=== PATIENT | female | born 1945 | race Caucasian/White ===

== ENCOUNTER 2022-02-15 15:18 | Inpatient (IN) | payer MEDICARE, MEDICAID, SELFPAY ==
[2022-02-15] VITALS (10 sets, daily range): BP systolic 142–186; BP diastolic 71–91; PULSE 100–106; RESP 16–18; TEMP 36.6; O2SAT 96–100; BMI 33.3
[2022-02-15 16:29] LABS: Add Manual Diff / Slide Review NO; Basophils Absolute Auto 100 /uL (0-100); Basophils Percent Auto 0.9 % (0-2); Eosinophils Absolute Auto 200 /uL (0-450); Eosinophils Percent Auto 2.4 % (2-4); Hematocrit 35.3 % (36-46); Hemoglobin 12.2 g/dL (12.0-16.0); Lymphocytes Absolute Auto 2200 /uL (1100-4500); Lymphocytes Percent Auto 21.9 % (25-40); Mean Corpuscular HGB Conc 34.4 % (30-36); Mean Corpuscular Hemoglobin 30.9 PG (26-34); Mean Corpuscular Volume 89.6 fL (80-100); Monocytes Absolute Auto 800 /uL (0-900); Monocytes Percent Auto 7.5 % (3-14); Neutrophils Absolute Auto 6800 /uL (1500-7000); Neutrophils Percent Auto 67.3 % (50-75); Platelet Count 335 X10^3/uL (150-400); Red Blood Cell Count 3.94 X10^6/uL (4.0-5.2); Red Cell Distribution Width 13.6 % (11.6-14.8); White Blood Cell Count 10.1 X10^3/uL (4.5-11.0)
[2022-02-15 16:40] LABS: Alanine Aminotransferase 19 IU/L (<35); Albumin 4.4 g/dL (3.5-5.0); Alkaline Phosphatase 90 U/L (38-126); Aspartate Aminotransferase 26 IU/L (14-36); BUN Creatinine Ratio 22.5 (6-22); Bilirubin Total 0.7 mg/dL (0.2-1.3); Blood Urea Nitrogen 23 mg/dL (7-17); Calcium 9.1 mg/dL (8.4-10.2); Carbon Dioxide 26 mmol/L (22-32); Chloride 98 mmol/L (98-107); Estimated Glomerular Filt Rate 57 mL/min (>60); Globulin 4.6 g/dL (1.7-4.1); Glucose 115 mg/dL (80-110); HEMOLYSIS < 15 (0-50); Potassium 4.3 mmol/L (3.4-5.1); Sodium 134 mmol/L (137-145)
--- NOTE | 2022-02-15 17:26 | PC.NURSE ---
unsure if covid vaccination or use of walker aggravated some increased fatigue and pain with movement and weakness of joints. but yesterday about 1400 had unable to counter help spoon well to eat. i had to use my left hand and i never use that counter help now equal, no drift, fast negative. chronic pain is worsening over last 3-4 weeks. new heavier/taller walker in last monthish. covid booster done 02/02/22. generalized complaints that have been worse over last month with pain medications for it. Right side now left side sharp joint pains bothersome, aspercreme helps some. sometimes my dictionary shuts down pt able to find words and communicate needs when given time.
--- NOTE | 2022-02-15 17:31 | PC.NURSE ---
pt reports 2 weeks of numbness to fingertips more left than right and fingertips will get white.
--- NOTE | 2022-02-15 18:39 | DI.CT.S_ITS ---
PROCEDURE: CT HEAD/BRAIN WO CON INDICATIONS: right hand weakness TECHNIQUE: Noncontrast 5 mm thick angled axial sections acquired from the foramen magnum to the vertex, with coronal and sagittal reformats. For radiation dose reduction, the following was used: automated exposure control, adjustment of mA and/or kV according to patient size. COMPARISON: None. FINDINGS: Image quality: Excellent. CSF spaces: Basal cisterns are patent. No extra-axial fluid collections. Ventricles are normal in size and shape. Brain: No midline shift. No intracranial masses or hemorrhage. Ledesma-white matter interface is normal. Mild atrophy and multifocal white matter chronic ischemic change. Skull and face: Calvarium and visualized facial bones are intact, without suspicious lesions. Incidental hyperostosis frontalis interna noted. Bilateral intraocular lens replacements noted. Sinuses: Visualized sinuses and mastoids are clear. IMPRESSION: Atrophy and chronic ischemic change without intracranial hemorrhage or mass effect Approved by: Adrian Antonio M.D. on 02/15/2022 at 18:10
--- NOTE | 2022-02-15 18:39 | ED.GENADULT ---
HPI - General Adult General Chief complaint: Weakness Stated complaint: states hands are not working, sent by MD Time Seen by Provider: 02/15/22 16:48 Source: patient Mode of arrival: Wheelchair History of Present Illness HPI narrative: Patient is a 76-year-old female. Patient does live by herself and does have quite a bit health comes in to with her activities of daily living. Has a history of high blood pressure. Zvi-[id number] diabetes. Is here for evaluation stating that yesterday she noticed that she was unable to feed herself with her right hand. She is right-hand dominant. She had used her left hand to feed herself which is not normal for her. Patient's daughter is at bedside and there was also some question about her ability to swallow but that seems to have improved/resolved. Patient states that since the onset of her symptoms yesterday she does feel like the coordination issues she was having with her right hand have improved but are not completely back to normal. She denied any other specific neurologic symptoms. She has been on an aspirin in the past but nothing currently. Patient does have balance issues but this is not new. Is on meclizine for this. Patient also has chronic pain issues but is fairly well controlled on her home pain management regimen. Related Data Home Medications Medication Instructions Recorded Confirmed acetaminophen 300 mg-codeine 30 mg See Rx Instructions .ROUTE .COMPLEX 02/15/22 02/15/22 tablet cyclobenzaprine 7.5 mg tablet 7.5 mg PO QID 02/15/22 02/15/22 lisinopril 20 See Rx Instructions .ROUTE .COMPLEX 02/15/22 02/15/22 mg-hydrochlorothiazide 12.5 mg tablet meclizine 25 mg tablet 25 mg PO PRN PRN 02/15/22 02/15/22 metformin 500 mg tablet 500 mg PO BID 02/15/22 02/15/22 nabumetone 500 mg tablet 500 mg PO QID 02/15/22 02/15/22 pramipexole 0.5 mg tablet 0.5 mg PO QID 02/15/22 02/15/22 Allergies Allergy/AdvReac Type Severity Reaction Status Date / Time erythromycin base AdvReac Verified 02/15/22 15:42 Penicillins AdvReac Verified 02/15/22 15:42 Review of Systems Review of Systems ROS Unobtainable: All systems reviewed & are unremarkable except as noted in HPI and below Constitutional Constitutional: Reports fatigue, Denies fever(s), Denies frequent falls and Denies headache(s) Eyes Eyes: Denies change in vision ENT Ears, Nose, Mouth, and Throat: Denies headache(s) and Denies sore throat Cardiovascular Cardiovascular: Denies chest pain and Denies rapid heart rate Respiratory Respiratory: Denies cough Gastrointestinal Gastrointestinal: Denies abdominal pain and Denies vomiting Genitourinary Genitourinary: Denies dysuria Musculoskeletal Musculoskeletal: Reports as per HPI Integumentary/Breasts Skin/Breast: Denies rash Neurologic Neurologic: Reports as per HPI, Denies frequent falls and Denies headache(s) Psychiatric Psychiatric: Reports system reviewed and no additional complaints, except as documented Endocrine Endocrine: Reports fatigue Hematologic/Lymphatic On Anticoagulants: No Allergic/Immunologic Allergic/Immunologic: Reports system reviewed and no additional complaints, except as documented Patient History Medical History Cervical osteoarthritis Chronic pain syndrome Diabetes type 2, controlled Essential hypertension Hyperlipidemia Family History (Updated 02/16/22 @ 00:47 by PAZ Duarte) Father Lymphoma Mother Heart disease Brother Alcohol abuse Sister Breast cancer Social History household members: none Smoking Status: Never smoker alcohol intake: never Smoking Status: Never smoker Exam Initial Vital Signs Initial Vital Signs: Vital Signs Temperature 97.9 F 02/15/22 15:43 Pulse Rate 104 H 02/15/22 15:43 Respiratory Rate 18 02/15/22 15:43 Blood Pressure 142/71 H 02/15/22 15:43 Pulse Oximetry 100 02/15/22 15:43 Const General: cooperative, comfortable and well developed Limitations: mental status not altered [facility] Head: normal to inspection and normocephalic Eyes General: appearance normal, both eyes and all related structures Chest Chest: normal inspection of the chest Resp Effort & Inspection: normal respiratory effort Auscultation: clear to auscultation bilaterally Cardio Rate: regular rate Rhythm: regular rhythm Heart Sounds: murmur GI Inspection: non-distended Palpation: soft and No tender Skin General: no rashes or lesions noted Neuro General: patient alert, patient awake, patient oriented x3 and moves all extremities Cranial Nerves: CN's II-XI intact bilaterally Cognition: normal cognition Speech: speech normal Motor: muscle tone normal throughout Sensory Exam: no sensory deficits noted Coordination: [id number] test normal Extrem General: normal to inspection and capillary refill normal Psych Appearance: grossly normal and well kempt Scores GCS Az[place] coma scale eye opening: Spontaneous Yony coma scale verbal response: Orientated Aztec coma scale motor response: Obey commands Yony coma scale total score: 15 NIH Stroke Scale Level of Conciousness: Alert, keenly responsive Ask month/age: Answers both questions correctly. Open/close eyes, close hand: Performs both tasks correctly Best gaze horizontal: Normal Visual singleton: No visual loss Facial palsy: Normal symetrical movement Left arm drift: No drift for full 10 sec Right arm drift: No drift for full 10 sec Left leg drift: No drift for full 5 sec Right leg drift: No drift for full 5 sec Limb ataxia: Absent Sensory on face/arms/legs: Normal, no sensory loss Best language: No aphasia, normal Dysarthria: Normal Extinction or inattention: No abnormality Total NIH Stroke scale score: 0 Course Orders Ordered: ED Orders 02/15/22 18:39 CT head/brain wo con Stat EKG-12 Lead Stat Acetaminophen (Acetaminophen 325 Mg Tablet) 650 mg PO Q6HR PRN PRN Reason: Fever/Mild Pain (1-3) Acetaminophen/Codeine Phosphate (Codeine/Acetaminophen 30/300 Tablet) 2 tab PO Q6HR [facility] Last Admin: 02/16/22 00:28 Dose: 2 tab Documented by: CHUCK Aspirin (Aspirin Ec 81 Mg Tablet) 81 mg PO DAILY [facility] Atorvastatin Calcium (Atorvastatin 20 Mg Tablet) 80 mg PO BEDTIME [facility] Last Admin: 02/15/22 23:00 Dose: Not Given Documented by: CHUCK Clopidogrel Bisulfate (Clopidogrel 75 Mg Tablet) 75 mg PO DAILY [facility] Cyclobenzaprine HCl (Cyclobenzaprine 10 Mg Tablet) 7.5 mg PO Q6HR [facility] Last Admin: 02/16/22 00:27 Dose: 7.5 mg Documented by: CHUCK Enoxaparin Sodium (Enoxaparin 40 Mg/0.4 Ml Syringe) 40 mg SUBCUT DAILY [facility] Lisinopril (Lisinopril 20 Mg Tablet) 20 mg PO DAILY [facility] Meclizine HCl (Meclizine Hcl 12.5 Mg Tablet) 25 mg PO PRN PRN PRN Reason: Dizziness Naloxone HCl (Naloxone 0.4 Mg/Ml Vial) 0.2 mg IV Q2MIN PRN PRN Reason: Opiate Reversal Pramipexole Dihydrochloride (Pramipexole 0.25 Mg Tablet) 0.5 mg PO Q6HR [facility] Last Admin: 02/16/22 00:27 Dose: 0.5 mg Documented by: CHUCK Discontinued Medications Acetaminophen/Codeine Phosphate (Codeine/Acetaminophen 30/300 Tablet) 2 tab PO QID [facility] Last Admin: 02/15/22 23:06 Dose: Not Given Documented by: CHUCK Aspirin (Aspirin 81 Mg Chew Tab) 324 mg PO NOW ONE Stop: 02/15/22 20:31 Last Admin: 02/15/22 20:32 Dose: 324 mg Documented by: JOSÉ Cyclobenzaprine HCl (Cyclobenzaprine 10 Mg Tablet) 7.5 mg PO QID [facility] Enoxaparin Sodium (Enoxaparin 40 Mg/0.4 Ml Syringe) 40 mg SUBCUT DAILY [facility] Pramipexole Dihydrochloride (Pramipexole 0.25 Mg Tablet) 0.5 mg PO QID [facility] Last Admin: 02/15/22 23:06 Dose: Not Given Documented by: CHUCK Vital Signs Vital signs: Vital Signs - 8 hr 02/15/22 15:43 02/15/22 16:26 02/15/22 16:28 Temperature 97.9 F 97.8 F Pulse Rate 104 H 102 H 102 H Respiratory Rate 18 Blood Pressure 142/71 H 174/91 H Pulse Oximetry 100 97 100 02/15/22 16:30 02/15/22 17:00 02/15/22 17:30 Temperature Pulse Rate 101 H 104 H 102 H Respiratory Rate 18 18 Blood Pressure 164/82 H 186/88 H 175/84 H Pulse Oximetry 96 99 98 02/15/22 18:00 Temperature Pulse Rate 100 H Respiratory Rate Blood Pressure Pulse Oximetry 97 Medical Decision Making Lab Data Lab results reviewed: Yes I reviewed the patient's lab results. Result diagrams: 02/15/22 16:15 02/15/22 16:15 Labs: Lab Results 02/15/22 02/15/22 02/15/22 Range/Units 16:15 16:15 16:15 WBC 10.1 (4.5-11.0) X10^3/uL RBC 3.94 L (4.0-5.2) X10^6/uL Hgb 12.2 (12.0-16.0) g/dL Hct 35.3 L (36-46) % MCV 89.6 (80-100) fL MCH 30.9 (26-34) PG MCHC 34.4 (30-36) % RDW 13.6 (11.6-14.8) % Plt Count 335 (150-400) X10^3/uL Neut % (Auto) 67.3 (50-75) % Lymph % (Auto) 21.9 L (25-40) % [place] % (Auto) 7.5 (3-14) % Eos % (Auto) 2.4 (2-4) % Baso % (Auto) 0.9 (0-2) % Neut # (Auto) 6800 (8316-8567) /uL Lymph # (Auto) 2200 (1328-0571) /uL [place] # (Auto) 800 (0-900) /uL Eos # (Auto) 200 (0-450) /uL Baso # (Auto) 100 (0-100) /uL Sodium 134 L (137-145) mmol/L Potassium 4.3 (3.4-5.1) mmol/L Chloride 98 (98-107) mmol/L Carbon Dioxide 26 (22-32) mmol/L BUN 23 H (7-17) mg/dL Creatinine 1.02 (0.52-1.04) mg/dL Estimated GFR 57 L (>60) mL/min BUN/Creatinine Ratio 22.5 H (6-22) Glucose 115 H (80-110) mg/dL Hemoglobin A1c (4.0-6.0) % Calcium 9.1 (8.4-10.2) mg/dL Magnesium 1.8 (1.6-2.3) mg/dL Total Bilirubin 0.7 (0.2-1.3) mg/dL AST 26 (14-36) IU/L ALT 19 (<35) IU/L Alkaline Phosphatase 90 (38-126) U/L Total Protein 9.0 H (6.3-8.2) g/dL Albumin 4.4 (3.5-5.0) g/dL Globulin 4.6 H (1.7-4.1) g/dL Albumin/Globulin Ratio 1.0 (1.0-2.8) Urine RBC (0-5/HPF) Urine WBC (0-5/HPF) Ur Squamous Epith Cells (0-5/HPF) Urine Bacteria (None) Ur Culture Indicated? 02/15/22 02/15/22 Range/Units 16:15 17:25 WBC (4.5-11.0) X10^3/uL RBC (4.0-5.2) X10^6/uL Hgb (12.0-16.0) g/dL Hct (36-46) % MCV (80-100) fL MCH (26-34) PG MCHC (30-36) % RDW (11.6-14.8) % Plt Count (150-400) X10^3/uL Neut % (Auto) (50-75) % Lymph % (Auto) (25-40) % [place] % (Auto) (3-14) % Eos % (Auto) (2-4) % Baso % (Auto) (0-2) % Neut # (Auto) (7881-4819) /uL Lymph # (Auto) (7364-8413) /uL [place] # (Auto) (0-900) /uL Eos # (Auto) (0-450) /uL Baso # (Auto) (0-100) /uL Sodium (137-145) mmol/L Potassium (3.4-5.1) mmol/L Chloride (98-107) mmol/L Carbon Dioxide (22-32) mmol/L BUN (7-17) mg/dL Creatinine (0.52-1.04) mg/dL Estimated GFR (>60) mL/min BUN/Creatinine Ratio (6-22) Glucose (80-110) mg/dL Hemoglobin A1c 5.8 (4.0-6.0) % Calcium (8.4-10.2) mg/dL Magnesium (1.6-2.3) mg/dL Total Bilirubin (0.2-1.3) mg/dL AST (14-36) IU/L ALT (<35) IU/L Alkaline Phosphatase (38-126) U/L Total Protein (6.3-8.2) g/dL Albumin (3.5-5.0) g/dL Globulin (1.7-4.1) g/dL Albumin/Globulin Ratio (1.0-2.8) Urine RBC None seen (0-5/HPF) Urine WBC 1-5/hpf (0-5/HPF) Ur Squamous Epith Cells 1-5 /hpf (0-5/HPF) Urine Bacteria None seen (None) Ur Culture Indicated? Specimen cultured Urine Dip Bedside Urine Glucose Negative Bedside Urine Bilirubin - Negative Bedside Urine Ketone - Negative Urine Specific Deposit 1.010 Bedside Urine Occult Blood - Negative Bedside Urine pH 7.0 Bedside Urine Protein - Negative Bedside Urine Urobilinogen - Negative Bedside Urine Nitrite - Negative Bedside Urine Leukocytes + 70 Esterase Point of care testing: Urine Dip Bedside Urine Glucose Negative Bedside Urine Bilirubin - Negative Bedside Urine Ketone - Negative Urine Specific Deposit 1.010 Bedside Urine Occult Blood - Negative Bedside Urine pH 7.0 Bedside Urine Protein - Negative Bedside Urine Urobilinogen - Negative Bedside Urine Nitrite - Negative Bedside Urine Leukocytes + [address] scan - head: Radiologist's Impression: [place] [address] CT Scan Report Signed Patient: Haylee Bhatt MR#: [id number] : 1945 Acct:[id number] Age/Sex: 76 / F Date of Service: 02/15/22 Loc: ED Accession Number: [id number] ?? Procedure: CT head/brain wo con Ordering Provider: Michele Lua D.O. PROCEDURE:? CT HEAD/BRAIN WO CON ? INDICATIONS:? right hand weakness ? TECHNIQUE:? Noncontrast 5 mm thick angled axial sections acquired from the foramen magnum to the vertex, with coronal and sagittal reformats.? For radiation dose reduction, the following was used:? automated exposure control, adjustment of mA and/or kV according to patient size.? ? COMPARISON:? None. ? FINDINGS:? Image quality:? Excellent.? ? CSF spaces:? Basal cisterns are patent.? No extra-axial fluid collections.? Ventricles are normal in size and shape.? ? Brain:? No midline shift.? No intracranial masses or hemorrhage.? Ledesma-white matter interface is normal.? Mild atrophy and multifocal white matter chronic ischemic change. ? Skull and face:? Calvarium and visualized facial bones are intact, without suspicious lesions.? Incidental hyperostosis frontalis interna noted.? Bilateral intraocular lens replacements noted. ? Sinuses:? Visualized sinuses and mastoids are clear.? ? IMPRESSION:? ? Atrophy and chronic ischemic change without intracranial hemorrhage or mass effect ? ? ? Approved by: Adrian Antonio M.D. on 02/15/2022 at 18:10? ECG Data Attestation: I personally reviewed and interpreted this ECG as follows: Interpretation: Sinus tachycardia Ventricular rate 108 Normal axis Normal QRS Normal QTC No ST T wave changes MDM Narrative Medical decision making narrative: Head CT is unremarkable. NIH score of 0. No appreciated weakness of the right hand compared to the left with functional testing both with the NIH score and also with squeezing of her hands. She is able to do [id number] without issue. Patient does report that her symptoms have improved since yesterday. Not tPA candidate. Low suspicion for large vessel occlusion based on her presentation. I did discuss with her and her daughter at bedside about her symptoms. She is a DNR/DNI. Did discuss the possibility of TA verses CVA. Discussed discharge home versus admission to the hospital. Patient is having significant issues at home with both mobility and also being able to care for herself and the symptoms that occurred yesterday are obviously making the situation worse. Patient would benefit from social Work consultation and also potential placement or maximizing home health. After this discussion with the patient and daughter decision is made to admit to the hospital for further evaluation and treatment. Discussed case with A[facility] Le[facility] provider who will admit for further evaluation and treatment. Patient and daughter expressed understanding and agreement. Discharge Plan Departure Patient Disposition: Admitted as Observation Clinical Impression: Brain TIA Admit Date/Time: 02/15/22 21:08 Admit Provider: Magnolia Leung
[2022-02-15 18:45] LABS: Bacteria Urine None Seen; Culture Indicated Urine Specimen Cultured; RBC Urine None Seen (0-5/HPF); Squamous Epithelial Cell Urine 1-5 /HPF (0-5/HPF); WBC Urine 1-5/HPF (0-5/HPF)
[2022-02-15] MEDS: ASPIRIN 81 MG CHEW TAB 324 MG PO (20:32)
[2022-02-15 22:17] LABS: Magnesium 1.8 mg/dL (1.6-2.3)
[2022-02-15 22:33] LABS: Hemoglobin A1C% w Est Avg Glu 5.8 % (4.0-6.0)
[2022-02-15 22:42] LABS: COVID19 -Nasal RAPID Negative (Negative)
--- NOTE | 2022-02-16 | DI.MRI.S_ITS ---
PROCEDURE: MR CERVICAL SPINE WO CON INDICATIONS: right hand tingling/weakness concerning for radiculopathy TECHNIQUE: Noncontrast sagittal T1 spin echo and T2 fast spin echo, sagittal STIR, foraminal oblique sagittal T2 fast spin echo, and axial gradient echo or T2 fast spin echo through the cervical spine. COMPARISON: None. FINDINGS: Image quality: Excellent. Alignment and Curvature: Straightening of the normal cervical lordosis with focal mild kyphosis at the C4 through C6 level. Bone Marrow: Chronic osseous fusion is seen involving the C4 through C6 vertebral bodies. No focal osseous edema. No suspicious marrow replacing mass. Marrow demonstrates normal overall signal. Spinal Cord: Visualized spinal cord has normal size and signal. No cerebellar tonsillar herniation. Paraspinous Soft Tissues: No paravertebral masses. Prevertebral soft tissues are normal in thickness. C2-C3: Mild central disc protrusion and mild bilateral facet hypertrophy results in mild effacement of the ventral CSF space without spinal cord impingement and mild bilateral neural foraminal narrowing. C3-C4: Disc desiccation and mild circumferential disc bulging with facet and uncovertebral joint hypertrophy which results in mild partial effacement of the ventral thecal sac as well as severe right and moderate left neural foraminal narrowing. C4-C5: Chronic osseous fusion across the disc space. No significant spinal canal or neural foraminal narrowing. C5-C6: Chronic osseous fusion across the disc space. Mild effacement of the anterior portion of the cul sac is seen without significant spinal cord impingement. There is uncovertebral joint and facet hypertrophy that results in moderate bilateral neural foraminal narrowing. C6-C7: Disc desiccation and loss of disc space height with circumferential disc bulging/disc-osteophyte complex as well as bilateral uncovertebral joint and facet hypertrophy. Findings result in severe right and moderate to severe left neural foraminal narrowing. C7-T1: Disc space narrowing without significant disc bulging. Bilateral facet and uncovertebral joint hypertrophy. There is [id number] narrowing of the bilateral neural foramina. IMPRESSION: 1. Chronic osseous fusion across the C4-5 and C5-6 disc spaces. 2. Multilevel degenerative changes throughout the cervical sinus described in detail above. 3. Neural foraminal narrowing is high-grade on the right as C3-4 as well as bilaterally at C6-7 and C7-T1. 4. No high-grade spinal canal stenosis. Dictated by: Arslan Corral M.D. on 02/16/2022 at 19:40 Approved by: Arslan Corral M.D. on 02/16/2022 at 19:51
[2022-02-16] MEDS: CYCLOBENZAPRINE 10 MG TABLET 7.5 MG PO ×4 (00:27→17:52)
[2022-02-16] MEDS: PRAMIPEXOLE 0.25 MG TABLET 0.5 MG PO ×4 (00:27→17:54)
[2022-02-16] MEDS: CODEINE/ACETAMINOPHEN 30/300 TABLET 2 TAB PO ×4 (00:28→17:52)
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
--- NOTE | 2022-02-16 01:32 | PC.NURSE ---
Pt arrived arount 2139, via wheelchair from the ED. Pts daughter was with her at time of arrival, pt on RA, A/O, reports pain 8/10 in R shoulder/arm- chronic pain. Pt was oriented to room, call light, and fall precautions. Bed in lowest, locked position and belongings and call light within reach.
[2022-02-16 02:17] VITALS: BP 132/70; PULSE 91; RESP 16; TEMP 36.2; O2SAT 96
[2022-02-16 06:00] VITALS: BP 122/70; PULSE 91; RESP 16; TEMP 36.8; O2SAT 98
[2022-02-16 06:31] LABS: Add Manual Diff / Slide Review NO; Basophils Absolute Auto 100 /uL (0-100); Basophils Percent Auto 0.9 % (0-2); Eosinophils Absolute Auto 300 /uL (0-450); Hematocrit 34.1 % (36-46); Hemoglobin 11.8 g/dL (12.0-16.0); Lymphocytes Absolute Auto 2800 /uL (1100-4500); Lymphocytes Percent Auto 29.3 % (25-40); Mean Corpuscular HGB Conc 34.7 % (30-36); Mean Corpuscular Hemoglobin 31.2 PG (26-34); Monocytes Absolute Auto 800 /uL (0-900); Monocytes Percent Auto 8.6 % (3-14); Neutrophils Absolute Auto 5500 /uL (1500-7000); Neutrophils Percent Auto 58.2 % (50-75); Platelet Count 331 X10^3/uL (150-400); Red Blood Cell Count 3.79 X10^6/uL (4.0-5.2); Red Cell Distribution Width 13.5 % (11.6-14.8); White Blood Cell Count 9.4 X10^3/uL (4.5-11.0)
[2022-02-16 06:39] LABS: BUN Creatinine Ratio 23.2 (6-22); Blood Urea Nitrogen 22 mg/dL (7-17); Calcium 8.9 mg/dL (8.4-10.2); Carbon Dioxide 30 mmol/L (22-32); Chloride 98 mmol/L (98-107); Cholesterol 157 mg/dL (140-199); Estimated Glomerular Filt Rate > 60 mL/min (>60); Glucose 100 mg/dL (80-110); HDL Cholesterol 37 mg/dL (40-60); HEMOLYSIS < 15 (0-50); LDL Cholesterol Calculated 94 mg/dL (<100); Potassium 3.7 mmol/L (3.4-5.1); Sodium 134 mmol/L (137-145); Triglycerides 129 mg/dL (35-150)
--- NOTE | 2022-02-16 08:25 | DI.ECHO.S_ITS ---
:Referring: MEREDITH JAQUEZ : + + Interpretation Summary The left ventricle is hyperdynamic. Diastolic function could not be accurately assessed due to unobtainable data. The right ventricle is normal in size and function. There is mild aortic stenosis. Pulmonary artery pressures cannot be estimated because of the lack of a measurable TR jet velocity. Procedure: A two-dimensional transthoracic echocardiogram with color flow and Doppler was performed. The study quality was technically difficult. There is no prior echocardiogram noted for this patient. Left Ventricle: The left ventricle is normal in size and wall thickness. The left ventricle is hyperdynamic. There are no obvious focal wall motion abnormalities noted but poor endocardial definition reduces the sensitivity for the detection of such. Diastolic function could not be accurately assessed due to unobtainable data. Right Ventricle: The right ventricle is normal in size and function. Atria: Both atria are normal in size. The interatrial septum grossly appears intact with no obvious evidence for an atrial septal defect. Mitral Valve: There is moderate mitral annular calcification. There is no mitral regurgitation noted. Aortic Valve: The aortic valve is moderately calcified. There is mild aortic stenosis. The aortic valve mean gradient is 11 mmHg. LVOT to AV VTI ratio is 0.68. No aortic regurgitation is present. Tricuspid Valve: The tricuspid valve is normal in structure and function. There is trace tricuspid regurgitation. Pulmonary artery pressures cannot be estimated because of the lack of a measurable TR jet velocity. Pulmonic Valve: The pulmonic valve is normal in structure and function. There is no pulmonic valvular regurgitation. Great Vessels: The aortic root is not well visualized. The ascending aorta could not be visualized. The IVC is of normal diameter and collapses less than 50% with a sniff. This suggests a right atrial pressure of 8 mm Hg. Pericardium/ Pleura There is no pericardial effusion. There is no pleural effusion. MMode/2D Measurements & Calculations LVIDd: 3.9 cm LVOT diam: 1.8 cm LVIDs: 2.1 cm FS: 46.2 % IVSd: 0.90 cm LVPWd: 0.90 cm LV mckeon. diameter/BSA (cm/m^2): 2.0 LV sys. diameter/BSA (cm/m^2): 1.1 LA dimension: 2.8 cm RA long axis: 4.6 cm LA A2 area: 16.7 cm2 LA A4 area: 20.3 cm2 LA length (vol): 5.5 cm LA vol: 52.1 ml LA vol index: 26.5 ml/m2 TAPSE_phl: 2.3 cm Doppler Measurements & Calculations Ao V2 max: 215.0 cm/sec LVOT Max Jarek: 136.0 cm/sec Ao V2 mean: 162.0 cm/sec LV V1 max P.4 mmHg Ao max P.5 mmHg LV V1 VTI: 30.2 cm Ao mean P.0 mmHg JEWELS(I,D): 1.7 cm2 Ao V2 VTI: 44.2 cm JEWELS(V,D): 1.6 cm2 sev ratio: 0.68 JEWELS indexed to BSA (cm^2/m^2): 0.86 MV E max jarek: 146.5 cm/sec SV(LVOT): 74.6 ml MV A max jarek: 169.0 cm/sec MV E/A: 0.87 Med Peak E' Jarek: 5.6 cm/sec E/E' med: 26.1 Lat Peak E' Jarek: 6.0 cm/sec E/E' lat: 24.4 E/e' average: 25.3 MV dec time: 0.26 sec AV VR_phl: 0.64 MV P1/2t-pr_phl: 76.0 msec Reading Physician:09:40 AM
[2022-02-16] MEDS: lisinopriL 20 MG TABLET PO (09:32)
[2022-02-16] MEDS: CLOPIDOGREL 75 MG TABLET PO (09:32)
[2022-02-16] MEDS: ASPIRIN EC 81 MG TABLET PO (09:32)
[2022-02-16] MEDS: ENOXAPARIN 40 MG/0.4 ML SYRINGE SUBCUT (09:33)
[2022-02-16 10:00] VITALS: BP 113/61; PULSE 89; RESP 16; TEMP 36.3; O2SAT 95
[2022-02-16] MEDS: NABUMETONE 500 MG TABLET PO ×2 (12:37→17:52)
--- NOTE | 2022-02-16 13:08 | PT-IP ANOTE ---
checked on pt this morning but refused PT. stated that she just got back to bed and does not want to get back up again. agreed to provide PLOF and home set up. agreed for PT to check back later today.
--- NOTE | 2022-02-16 13:45 | PT.IIE ---
Current Diagnoses Chronic pain syndrome (02/15/22) Other malaise (02/15/22) Medical History (Last Reviewed 02/16/22 @ 03:12 by Michele Lua DO) Cervical osteoarthritis Chronic pain syndrome Diabetes type 2, controlled Essential hypertension Hyperlipidemia Physical Therapy Inpatient Evaluation/Re-Eval M1 PT/OT-IP Prior Functional Status Start: 02/16/22 13:04 Freq: NEEDED Status: Active Protocol: Document 02/16/22 13:45 AB (Rec: 02/16/22 15:44 AB [id number]) Medical Review Prior Functional Status Medical History Reviewed Yes Communication able to make needs known Mobility and Gait pt stated that she is modified independent with all mobilities and ambulation using a 4WW but is limited with mobility due to c/o pain affecting independence. stated that she has 2 caregivers that comes in to assist her but able to manage on her own when caregivers are not around but usually just stays on her couch. Social History Household Members none Living Arrangements Apartment/Condo Number of Floors (Floors) One Floor Number of Stairs To Enter/Railing? no steps to enter Home Environment Standard Height Toilet,Walk in Shower Home Equipment Four Wheel Walker,Shower Seat with Backrest,Hand Held Shower ,Grab Bars Near Toilet,Grab Bars In Shower Additional Social History Comment has 2 caregivers that comes in 3-4 hours (stated that she has 123 hours/month of assistance), a caregiver comes in on saturdays but she is alone on sundays M2 PT-IP Current Condition Start: 02/16/22 13:04 Freq: NEEDED Status: Active Protocol: Document 02/16/22 13:45 AB (Rec: 02/16/22 15:44 AB [email or web address]) Physical Therapy Current Condition Current Condition Evaluation Date 02/16/22 Treatment Diagnosis TIA; difficulty in walking Onset Date 02/15/22 M3 PT-IP Subjective Start: 02/16/22 13:04 Freq: NEEDED Status: Active Protocol: Document 02/16/22 13:45 AB (Rec: 02/16/22 15:44 AB [email or web address]) Subjective Physical Therapy Visit Type Type Initial Evaluation Visit Start Time 13:45 Visit Stop Time 14:15 Total Visit Minutes 30 Number of INSIDE SALES PROFESSIONAL Visits 0 Physical Therapy Visit Comments Patient Comments agreeable to do PT this afternoon Therapy Pain Assessment Pain When Pain Assessed At Rest Pain Present Pain Present Pain Reported Location Neck Scale Used pain scale not stated Bilateral Shoulder Scale Used R>L M4 PT-IP Mobility and Gait Start: 02/16/22 13:04 Freq: NEEDED Status: Active Protocol: Document 02/16/22 13:45 AB (Rec: 02/16/22 15:44 AB [email or web address]) PT-Bed Mobility Assessment Supine to Sit Supine to Sit Standby Assistance PT-Transfer Assessment Sit to and From Stand Sit to and from Stand Minimal Assistance,1 Person Assistance Equipment Transfer Assistive Device Front Wheeled Walker Orthotic/Prosthetic Devices or Brace: No Transfers Transfer Destination Chair Transfer Technique ambulated Transfer Ability Level of Assist Moderate Assistance,1 Person Assistance,Use of Upper Extremities Comments Mobility Comments pt stated that she had previous cervical surgeries x 2 and has been using a 4WW for a few weeks now and stated that her RUE pain is due to her heavy 4WW. noted increase lateral cervical and trunk leaning to the L. pt has soft collar on per pt's preference due to cervical pain. daughter in room with pt this afternoon. pt completed supine to sit SBA. able to sit on EOB SBA. completed sit to stand min A and cues and ambulated in room ~ 25 ft using FWW mod A and cues. presents with stooped posture with increase RLE external rotation with decrease LE elevation. pt sat on the chair and agreed to stay up on the chair. positioned on the chair. call light and table placed within reach. Gait Assessment Gait Gait Assistance Required: Moderate Assistance Distance (Feet) 25 Able to Maintain Weight Bearing Status Yes During Gait Assistive Devices Assistive Device Gait Belt,Front Wheeled Walker Orthotic/Prosthetic Devices or Brace: No Gait Deviations General Gait Pattern Antalgic,Decreased Stride Length,Decreased Feet Clearance,Flexed Trunk,Step-to Gait,Wide Based Gait Factors Limiting Gait Function Factors Limiting Gait Function Decreased Activity Tolerance, Decreased Sensation,Decreased Strength,Limited Range of Motion,Pain PT-Balance Assessment Sitting Balance and Reactions Static Sitting Balance Ability Good Dynamic Sitting Balance Ability Fair Standing Balance and Reactions Static Standing Balance Ability Poor Dynamic Standing Balance Ability Poor Device Used FWW M5 PT-IP Objective Assessments Start: 02/16/22 13:04 Freq: NEEDED Status: Active Protocol: Document 02/16/22 13:45 AB (Rec: 02/16/22 15:44 AB [email or web address]) Orientation Orientation/Cognition Level of Alertness Alert Orientation Name Language Function Ability Hard of Hearing Safety Awareness Decreased Safety Awareness Memory Description No Deficits Noted Gross Range of Motion Lower Extremity ROM Assessment Within Functional Limits Strength Lower Extremity Strength Assessment Bilaterally Impaired Hip 3+/5 Knee 3+/5 Coordination Assessment Gross Coordination Gross Coordination WNL Sensation Assessment Sensation Gross Sensation Right UE Impaired Sensation Description Numbness Comments Sensation Comments c/o R fingers numbness Muscle Tone Muscle Tone WNL Yes M6 PT-IP Treatment Start: 02/16/22 13:04 Freq: NEEDED Status: Active Protocol: Document 02/16/22 13:45 AB (Rec: 02/16/22 15:44 AB [id number]) Physical Therapy Treatment Education Education Provided Safety M7 PT-IP Assessment and Plan Start: 02/16/22 13:04 Freq: NEEDED Status: Active Protocol: Document 02/16/22 13:45 AB (Rec: 02/16/22 15:44 AB [id number]) PT Summary Assessment and Plan Potential Rehabilitation Potential Good Status of Condition at Evaluation Evolving Summary Impairments Pain,ROM,Strength,Balance, Coordination,Sensation,Tone, Cognition,Bed Mobility, Transfers,Gait,Activity Tolerance Assessment Summary pt requiring mod A with ambulation using FWW. pt only has 3-4 hours of assistance during the week and limited on saturdays and no assistance at all on . pt will require 24/7 assist at this time and will benefit from SNF rehab to improve strength and mobility. pt's daughter talked with PT and expressed awareness that pt should not go back home and she is hoping that they can find a high school art teacher care placement for pt. Goals Bed Mobility Goal Standby Assistance Transfer Goal Standby Assistance,Front Wheeled Walker Gait Goal Standby Assistance,Front Wheel Walker Gait Distance 100 Other Goals improve ambulation using 4WW 150 ft SBA Days to Meet Goals 10 Frequency of Treatment Frequency Of Treatment Once a Day Treatment Plan Physical Therapy Treatment Plan Bed Mobility Training,Transfer Training,Gait Training, Therapeutic Exercise,Balance Retraining,Discharge Planning, Hot or Cold Pack,Neuromuscular Re-ed,Coordination Retraining ,Manual Therapy Precautions Other Precautions falls Recommendations To Nursing Amount of Assist Needed 1 Person Assist Discharge Recommendations PT Discharge Recommendations SNF Rehab Transportation Needs at Discharge Wheelchair/Cabulance
[2022-02-16 14:00] VITALS: BP 132/68; PULSE 91; RESP 17; TEMP 36.4; O2SAT 96
--- NOTE | 2022-02-16 14:35 | PC.NURSE ---
Day shift: Pt off unit at approx 1440 for MRI. She will be off tele.
--- NOTE | 2022-02-16 16:10 | CM.IDA ---
Initial DCP Assessment Note Pt is a 76 yo female, resident of [facility], arrives w/complaint of persistent right hand weakness and admitted observation for stroke work up, r/o TIA vs CVA PMH includes chronic pain syndrome, diabetes type 2, essential hypertension, and hyperlipidemia According to ER provider Lanker: Patient would benefit from social Work consultation and also potential placement or maximizing home health. After this discussion with the patient and daughter decision is made to admit to the hospital for further evaluation and treatment. Discussed case with AINSLEY Leung the night Hospital provider who will admit for further evaluation and treatment. Patient and daughter expressed understanding and agreement. PCP: None listed Payer: MCR/MARIZOL Met w/patient and her dtr/DPOA Pallavi this afternoon, introduced role. Patient has flat affect, pleasant, A+O w/some mild confusion and difficulty in tracking topic of conversation noted Patient gives this MASTER CHEF permission to do planning and gathering of background with dtr Pallavi, states she would like her dtr to be the one who makes the decision on all of this. Patient taken for imaging while following information gathered: According to dtr; patient has [facility] care givers 120 hours monthly, approx 4 hrs 6 days per week. JANESSA CM is Ann-Marie Lilly. Patient's needs have increased and dtr has been concerned that patient's needs will outweigh abilities of in home care givers provided through [facility]. Dtr requesting facility search on patient's behalf According to dtr, patient leads mostly a sedentary life, however, has been able to ambulate around her apt until recently. Patient benefits from care givers assistance w/cooking, cleaning, driving and hygiene assist Patient has been to SNF in the past and will consider again. Dtr hoping this CM team can secure a SNF closer to her home in [facility]. Dtr Pallavi is a working market basket maker in [place] and suggests, ideally, her mom could be closer to she and her family for watermaster care Discussed the THOMAS form w/dtr. Discussed observation vs inpatient. Reviewed SNF search w/obs status and explained there could be a chance that a COVID waiver could be utilized (?) Dtr and family are trying to manage decisions re short term care and watermaster care. Patient would like to return home, admits she becomes fearful when leaving the house because I might fall but willing to consider facility placement if dtr will help in this planning process. Dtr Pallavi agrees to send this MASTER CHEF email including list of SNF options in the [facility] area. In addition, brian gives this MASTER CHEF permission to send clinical referrals to facilities near [facility] and [place] for review under COVID waiver/MARIZOL Will plan to follow closely for coordination of DCP; collaborating with patient and dtr Pallavi Copy of patient's COVID vax card w/booster taken NICKIE Beasley Discharge Planning/Care Management CM Discharge Assessment Start: 02/16/22 16:06 Freq: Status: Active Protocol: Document 02/16/22 16:06 JOAO (Rec: 02/16/22 16:10 JOAO [id number]) Discharge Planning Assessment Assigned Envelope Maker NICKIE Aldana DPCARLOS ALBERTO/Assigned Designee Name Pallavi Bhatt dtr/EZEKIEL Contact Information [phone] Advance Directives? Yes Advance Directives on File No History Provided By Family Member Prior Living Arrangements Apartment/Condo Household Members none Independent with ADL's No Is patient alert and oriented? Yes: Some confusion noted Needs Assistance With Bathing,Meal Prep,Toileting, Managing Medications,Home Chores / Shopping Name of Agency [facility] Patient/Family Preference Halfway Facility Barriers to Discharge Yes Comment Does not have enough care at home for current needs Discharge Plan Halfway Facility Transportation Arrangement Likely w/c Referrals Initiated Halfway Medicare Choice List Provided Yes Comment SNF search in process
--- NOTE | 2022-02-16 16:29 | SLP.IPNOTE ---
Attempted to see pt. She refused anything to eat before her MRI. Spoke with pt's daughter, who noted that pt can be stubborn/refuse therapies if she is not approached in a calm manner. Discussed with daughter that I will try to see pt during breakfast or lunch tomorrow.
--- NOTE | 2022-02-16 17:08 | P.PN_ITS ---
Subjective Subjective Date Patient Seen: 02/16/22 Interval history: 76-year-old female admitted to the hospital with right hand weakness, shoulder pain, neck pain, which has been progressively worse. She reports her pain is 10/10, however this is chronic pain for her. Attempts were made to obtain a cervical MRI to rule out cervical disease however she was claustrophobic. Patient will be premedicated and a repeat MRI of the neck will be obtained. She has no focal weakness other than the weakness of the right arm which is associated with the right-sided pain. No blurred vision no double vision no slurring of her speech. Exam Vital Signs (past 8 hours): - 02/16/22 10:00 02/16/22 14:00 Temperature 97.4 F L 97.5 F L Pulse Rate 89 91 H Respiratory Rate 16 17 Blood Pressure 113/61 132/68 Pulse Oximetry 95 96 Oxygen Delivery Method Room Air Oxygen Flow Rate 0 Narrative Exam Narrative: Elderly female lying in bed HENNM Other: Normocephalic atraumatic, sclerae anicteric, extraocular muscles are intact, Neck Other: Soft cervical collar in Resp Other: Lungs: Clear to auscultation Cardio Other: Cardiac exam: Regular rate and rhythm normal S1-S2 GI Other: Abdomen: Soft and nontender Neuro Other: NIH stroke scale score is 0, strength appears to be symmetric and equal, sensations grossly intact, there is no facial asymmetry, cranial nerves are intact Objective Labs Result Diagrams: 02/16/22 05:51 02/16/22 05:51 Labs: Laboratory Results - last 24 hr 02/15/22 02/15/22 02/15/22 16:15 16:15 17:25 WBC RBC Hgb Hct MCV MCH MCHC RDW Plt Count Neut % (Auto) Lymph % (Auto) [place] % (Auto) Eos % (Auto) Baso % (Auto) Neut # (Auto) Lymph # (Auto) [place] # (Auto) Eos # (Auto) Baso # (Auto) Sodium Potassium Chloride Carbon Dioxide BUN Creatinine Estimated GFR BUN/Creatinine Ratio Glucose Hemoglobin A1c 5.8 Calcium Magnesium 1.8 Triglycerides Cholesterol LDL Cholesterol, Calc HDL Cholesterol Urine RBC None seen Urine WBC 1-5/hpf Ur Squamous Epith Cells 1-5 /hpf Urine Bacteria None seen Ur Culture Indicated? Specimen cultured SARS-CoV-2 (PCR) 02/15/22 02/16/2222 21:35 05:51 05:51 WBC 9.4 RBC 3.79 L Hgb 11.8 L Hct 34.1 L MCV 90.0 MCH 31.2 MCHC 34.7 RDW 13.5 Plt Count 331 Neut % (Auto) 58.2 Lymph % (Auto) 29.3 [place] % (Auto) 8.6 Eos % (Auto) 3.0 Baso % (Auto) 0.9 Neut # (Auto) 5500 Lymph # (Auto) 2800 [place] # (Auto) 800 Eos # (Auto) 300 Baso # (Auto) 100 Sodium 134 L Potassium 3.7 Chloride 98 Carbon Dioxide 30 BUN 22 H Creatinine 0.95 Estimated GFR > 60 BUN/Creatinine Ratio 23.2 H Glucose 100 Hemoglobin A1c Calcium 8.9 Magnesium Triglycerides 129 Cholesterol 157 LDL Cholesterol, Calc 94 HDL Cholesterol 37 L Urine RBC Urine WBC Ur Squamous Epith Cells Urine Bacteria Ur Culture Indicated? SARS-CoV-2 (PCR) Negative [facility] Medical History Cervical osteoarthritis Chronic pain syndrome Diabetes type 2, controlled Essential hypertension Hyperlipidemia Family History (Updated 02/16/22 @ 00:47 by PAZ Duarte) Father Lymphoma Mother Heart disease Brother Alcohol abuse Sister Breast cancer Social History household members: none Smoking Status: Never smoker alcohol intake: never Assessment & Plan Assessment & Plan narrative: 1. Right hand weakness, in the setting of right shoulder pain, right upper extremity pain, NIH score is 0, doubt CVA or TIA * Suspect cervical canal disease, will obtain MRI of the cervical spine * Will discontinue MRI of the brain, discontinue Plavix and aspirin at this time * Agree with PT OT consultation * Need to determine whether the patient is strong enough to return home or whether she will need subacute rehab 2. Hypertension * Will continue usual home medication regimen 3. Hyperlipidemia * Continue statin 4. Chronic pain * Will continue her usual home regimen, Further recommendations once MRI of the cervical spine has been obtain. Time Spent With Patient Critical Care time: I spent a total of [] minutes of critical care time on this patient's care today; this time is exclusive of procedural time. Quality VTE Deep Vein Thrombosis/Pulmonary Embolism Present on Admission: No
[2022-02-16 18:00] VITALS: BP 115/82; PULSE 93; RESP 17; TEMP 36.9; O2SAT 96
[2022-02-16] MEDS: LORazepam 1 MG TABLET PO (18:14)
--- NOTE | 2022-02-16 18:37 | PC.NURSE ---
Day shift: Pt off unit for MRI at approx 1837. Medicated per MAR for anxiety and Pt's Daughter went down to help keep Pt calm.
[2022-02-16 20:14] VITALS: BP 132/72; PULSE 89; RESP 16; TEMP 36.6; O2SAT 98
[2022-02-16] MEDS: SODIUM CHLORIDE 0.9% FLUSH 10 ML IV (21:26)
[2022-02-16 22:18] LABS: Magnesium 1.9 mg/dL (1.6-2.3)
[2022-02-17] VITALS: BP 126/66; PULSE 80; RESP 18; TEMP 36.2; O2SAT 97
--- NOTE | 2022-02-17 | DI.RAD.S_ITS ---
PROCEDURE: FL BARIUM SWALLOW W SPEECH INDICATIONS: Dysphagia COMPARISON: None. TECHNIQUE: Examination was conducted in conjunction with speech pathology per standard protocol. In the lateral projection, filming was performed of the patient swallowing. AP projection filming may also be performed with patient swallowing. COMPARISON: FINDINGS: Function: The oral preparatory phase appears normal, with proper containment. The subsequent oral propulsive phase, pharyngeal phase, and esophageal phase of swallowing also appear normal with all proffered substances. Episodes of laryngotracheal penetration identified. No laryngotracheal aspiration. No pathologic vallecular pooling. Morphology: There is smooth narrowing of the upper esophagus at the upper soft tissues sphincter without associated delayed passage of contrast material concerning for sphincter hypertrophy. No cricopharyngeal bar is identified. No cervical esophageal webs. No Zenker's diverticulum. No strictures. IMPRESSION: 1. Laryngotracheal penetration. No aspiration. 2. Possible upper esophageal sphincter hypertrophy. Recommend gastroenterology consultation. Dictated by: Payton Thorpe MD, PhD on 02/17/2022 at 15:54 Approved by: Payton Thorpe MD, PhD on 02/17/2022 at 15:57
[2022-02-17 04:37] VITALS: BP 128/82; PULSE 87; RESP 18; TEMP 36.3; O2SAT 97
[2022-02-17 06:13] LABS: BUN Creatinine Ratio 23.9 (6-22); Blood Urea Nitrogen 21 mg/dL (7-17); Carbon Dioxide 24 mmol/L (22-32); Chloride 100 mmol/L (98-107); Estimated Glomerular Filt Rate > 60 mL/min (>60); Glucose 147 mg/dL (80-110); HEMOLYSIS < 15 (0-50); Potassium 3.7 mmol/L (3.4-5.1); Sodium 134 mmol/L (137-145)
[2022-02-17] MEDS: CODEINE/ACETAMINOPHEN 30/300 TABLET 2 TAB PO ×4 (06:14→23:46)
[2022-02-17] MEDS: PRAMIPEXOLE 0.25 MG TABLET 0.5 MG PO ×4 (06:15→23:46)
[2022-02-17] MEDS: CYCLOBENZAPRINE 10 MG TABLET 7.5 MG PO ×4 (06:16→23:48)
[2022-02-17 06:20] LABS: Add Manual Diff / Slide Review NO; Basophils Absolute Auto 100 /uL (0-100); Basophils Percent Auto 0.7 % (0-2); Eosinophils Absolute Auto 300 /uL (0-450); Eosinophils Percent Auto 2.9 % (2-4); Hematocrit 36.9 % (36-46); Hemoglobin 12.5 g/dL (12.0-16.0); Lymphocytes Absolute Auto 1800 /uL (1100-4500); Lymphocytes Percent Auto 17.4 % (25-40); Mean Corpuscular HGB Conc 33.9 % (30-36); Mean Corpuscular Hemoglobin 30.7 PG (26-34); Mean Corpuscular Volume 90.5 fL (80-100); Monocytes Absolute Auto 800 /uL (0-900); Monocytes Percent Auto 7.2 % (3-14); Neutrophils Absolute Auto 7500 /uL (1500-7000); Neutrophils Percent Auto 71.8 % (50-75); Platelet Count 333 X10^3/uL (150-400); Red Blood Cell Count 4.08 X10^6/uL (4.0-5.2); Red Cell Distribution Width 13.3 % (11.6-14.8); White Blood Cell Count 10.5 X10^3/uL (4.5-11.0)
[2022-02-17] MEDS: NABUMETONE 500 MG TABLET PO ×4 (06:21→23:47)
[2022-02-17 07:15] VITALS: BP 125/64; PULSE 89; RESP 18; TEMP 36.9; O2SAT 97
[2022-02-17] MEDS: ENOXAPARIN 40 MG/0.4 ML SYRINGE SUBCUT (09:33)
[2022-02-17] MEDS: predniSONE 20 MG TABLET 60 MG PO (09:36)
[2022-02-17] MEDS: ASPIRIN EC 81 MG TABLET PO (09:36)
[2022-02-17] MEDS: lisinopriL 20 MG TABLET PO (09:37)
[2022-02-17] MEDS: SODIUM CHLORIDE 0.9% FLUSH 10 ML IV ×2 (09:37→20:03)
[2022-02-17 11:02] VITALS: BP 136/77; PULSE 96; RESP 18; TEMP 36.7; O2SAT 98
--- NOTE | 2022-02-17 13:14 | CM.DPNOTE ---
Addendum entered by Daria Skinner NICKIE 02/18/22 08:15: ADD: Patient now inpatient. Spoke w/patient and dtramon Pineda yesterday, discussed plan. Miriam requesting DC Sunday to [facility], discussed w/March at [facility] and w/Dr Wasserman, all agreeable to plan. Patient will be discharged Sunday to [facility], kaylar Miriam will be at bedside to reassure patient and assist w/any questions that arise about this plan. This TRUCKER HAND will complete PASRR and ask that RN update COVID PCR today, 1100 transport expected, dtr Miriam aware JW Original Note: Placement Efforts Contacted multiple SNFs in the [place] area per brian Pineda's request, no luck securing a bed at this time Spoke /March/[facility], who anticipates she can use the COVID waiver to admit patient, likely tomorrow Updated patient and dtr; agreeable to [facility] if no [facility] SNF secured Brian Pineda's email: JOAO
--- NOTE | 2022-02-17 13:20 | ST.IPCSEOM ---
Visit Care Team Role Provider Type PAZ Wilson Referring Provider Non-Staff Specialty: Nursing Address: [address] [place] [address], [address] Email: Michele Lua DO Emergency Provider Physician Specialty: Emergency Medicine Address: [address] [place] [address], [address] Email: [email or web address] Admit Provider Physician Attending Provider Specialty: Internal Medicine Address: [address] [place] [address], [address] Email: [email or web address] Diagnoses Chronic pain syndrome (02/15/22) Other malaise (02/15/22) Past Medical History (Last Reviewed 02/16/22 @ 03:12 by Michele Lua DO) Cervical osteoarthritis (Medical) Chronic pain syndrome (Medical) Diabetes type 2, controlled (Medical) Essential hypertension (Medical) Hyperlipidemia (Medical) Speech-Language Pathology Swallow Evaluation 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 Clinical Swallow Evaluation Start: 02/17/22 12:45 Freq: Status: Active Protocol: Document 02/17/22 12:46 BENNETTK (Rec: 02/17/22 13:19 [email or web address] [id number]) Clinical Swallow Evaluation Session Time Visit Start Time 11:30 Visit Stop Time 12:15 Total Visit Minutes 45 Setting Assessment Location Outpatient Care Visit Type Note Type Re-evaluation Next Note Type Next Note Type Re-evaluation Patient Information Identification Type Name,Wristband History Pt is a 76-year-old female with chronic pain syndrome, diabetes type 2, essential hypertension, and hyperlipidemia presented to the ED with history of weakness in her right hand, noticing when she was eating and holding a spoon, was not able to continue holding it. Pt and Pt's daughter states that patient has been complaining of having a swallowing problem which appears to be chronic and was finding it hard to eat soft foods even. Pt described her swallow difficulty as it gets stuck and does not go into her esophagus. She also described as a spasm. Pt had ACDF surgery x 2 years ago. After that her swallow spasm began. She also described a bone spur in her neck. an MRI yesterday indicated: 1. Chronic osseous fusion across the C4-5 and C5-6 disc spaces. 2. Multilevel degenerative changes throughout the cervical sinus described in detail above. 3. Neural foraminal narrowing is high-grade on the right as C3-4 as well as bilaterally at C6-7 and C7-T1. 4. No high-grade spinal canal stenosis. P'ts dysphagia, as described by pt appearrs to be pharyngeal. Recommend MBSS. MBSS scheduled for 1400 today, Subjective Observations Pt in bedside chair. Pt's daughter in room as well. Reported by Patient Location Neck Other Symptoms Difficulty swallowing liquids, Difficulty swallowing pills, Difficulty swallowing solids, Food gets stuck Current Diet Regular,Thin liquids Baseline Feeding Method Independent in self-feeding Objective Assessment Mental Status Alert,Responsive,Cooperative Oral Integrity WFL Dentition Missing teeth Observation of Lips at Rest Symmetrical Pucker Within normal limits Lip Retraction Within normal limits Phonation Within normal limits Comment Informal observation of the pt during conversation indicaated strucures and function to be WFL Food and Liquid Trials Comment No trials presented as collecting Pt's medical history was extensive re: swallowing problem, medical information, and background, etc. Both pt and her daughter provided information. Recommendations Instrumental Assessment Yes Education Patient/Caregiver Education Described results of evaluation,Patient expressed understanding of evaluation, Patient expressed agreement with goals & treatment plans, Family/caregivers expressed understanding of evaluation, Family/caregivers expressed agreement with goals & treatment plans Goals Short-term Goals Pt will have MBSS to r/o phpharyngeal dysphagia
--- NOTE | 2022-02-17 13:52 | PC.NURSE ---
Day shift: Pt off AC unit for procedure at approx 1352.
--- NOTE | 2022-02-17 14:36 | PC.NURSE ---
Day shift: Back to AC unit room at approx 1436. Helped to chair in room. Call light in reach and Daughter in room for support.
[2022-02-17 15:00] VITALS: BP 148/80; PULSE 103; RESP 18; TEMP 36.9; O2SAT 95
--- NOTE | 2022-02-17 15:15 | PT.IPTN ---
Current Diagnoses Chronic pain syndrome (02/17/22) Other malaise (02/17/22) Physical Therapy Treatment Note M2 PT-IP Current Condition Start: 02/16/22 13:04 Freq: NEEDED Status: Active Protocol: Document 02/16/22 13:45 AB (Rec: 02/16/22 15:44 AB [id number]) Physical Therapy Current Condition Current Condition Evaluation Date 02/16/22 Treatment Diagnosis TIA; difficulty in walking Onset Date 02/15/22 M3 PT-IP Subjective Start: 02/16/22 13:04 Freq: NEEDED Status: Active Protocol: Document 02/17/22 15:00 KS (Rec: 02/17/22 15:24 KS [id number]) Subjective Physical Therapy Visit Type Type Treatment Note Visit Start Time 15:00 Visit Stop Time 15:15 Total Visit Minutes 15 Number of SYSTEMS MANAGER Visits 1 Physical Therapy Visit Comments Patient Comments Pt agreeable to exercises in chair. Therapy Pain Assessment Pain When Pain Assessed At Rest Pain Present Pain Present Pain Reported Location Neck Scale Used pain scale not stated M4 PT-IP Mobility and Gait Start: 02/16/22 13:04 Freq: NEEDED Status: Active Protocol: Document 02/17/22 15:00 KS (Rec: 02/17/22 15:24 KS [id number]) PT-Transfer Assessment Comments Mobility Comments Pt in chair upon arrival and not agreeable to standing, ambulating, or transferring but does agree to complete LE exercises while seated in chair. Pt completed 1x10 bilateral ankle pumps, quad sets, SLR, heel slides, and glute sets. She reported fatigue and neck pain following. Max A for repositioning in chair. Pt left in chair w/ all needs in reach. Gait Assessment Comments Gait Comments Pt not agreeable to ambulate this PM due to fatigue and fear of unsteadiness. M5 PT-IP Objective Assessments Start: 02/16/22 13:04 Freq: NEEDED Status: Active Protocol: Document 02/16/22 13:45 AB (Rec: 02/16/22 15:44 AB [id number]) Orientation Orientation/Cognition Level of Alertness Alert Orientation Name Language Function Ability Hard of Hearing Safety Awareness Decreased Safety Awareness Memory Description No Deficits Noted Gross Range of Motion Lower Extremity ROM Assessment Within Functional Limits Strength Lower Extremity Strength Assessment Bilaterally Impaired Hip 3+/5 Knee 3+/5 Coordination Assessment Gross Coordination Gross Coordination WNL Sensation Assessment Sensation Gross Sensation Right UE Impaired Sensation Description Numbness Comments Sensation Comments c/o R fingers numbness Muscle Tone Muscle Tone WNL Yes M6 PT-IP Treatment Start: 02/16/22 13:04 Freq: NEEDED Status: Active Protocol: Document 02/17/22 15:00 KS (Rec: 02/17/22 15:24 KS [id number]) Physical Therapy Treatment Exercises Exercises Ankle Pumps,Gluteal Sets,Quad Sets,Heel Slides,Straight Leg Raises Education Education Provided Safety M7 PT-IP Assessment and Plan Start: 02/16/22 13:04 Freq: NEEDED Status: Active Protocol: Document 02/17/22 15:00 KS (Rec: 02/17/22 15:24 KS [id number]) PT Summary Assessment and Plan Potential Rehabilitation Potential Good Status of Condition at Evaluation Evolving Summary Impairments Pain,ROM,Strength,Balance, Coordination,Sensation,Tone, Cognition,Bed Mobility, Transfers,Gait,Activity Tolerance Assessment Summary Pt was not agreeable to ambulating therefore unable to progress pt this afternoon. She did complete LE exercises w/ verbal and tactile cues and had quick approach to fatigue following. She was sliding downward in chair and required Max A to scoot hips backwards . At this time, due to pts low tolerance for activity and weakness, she will require SNF to improve functional mobilty independence. Goals Bed Mobility Goal Standby Assistance Transfer Goal Standby Assistance,Front Wheeled Walker Gait Goal Standby Assistance,Front Wheel Walker Gait Distance 100 Other Goals improve ambulation using 4WW 150 ft SBA Days to Meet Goals 10 Frequency of Treatment Frequency Of Treatment Once a Day Treatment Plan Physical Therapy Treatment Plan Bed Mobility Training,Transfer Training,Gait Training, Therapeutic Exercise,Balance Retraining,Discharge Planning, Hot or Cold Pack,Neuromuscular Re-ed,Coordination Retraining ,Manual Therapy Precautions Other Precautions falls Recommendations To Nursing Amount of Assist Needed 1 Person Assist Discharge Recommendations PT Discharge Recommendations SNF Rehab Transportation Needs at Discharge Wheelchair/Cabulance
--- NOTE | 2022-02-17 17:23 | ST.SWALLOW ---
Visit Care Team Role Provider Type PAZ Wilson Referring Provider Non-Staff Specialty: Nursing Address: [address] [place] [address], [address] Email: Michele Lua DO Emergency Provider Physician Specialty: Emergency Medicine Address: [address] [place] [address], [address] Email: [email or web address] Admit Provider Physician Attending Provider Specialty: Internal Medicine Address: [address] [place] [address], [address] Email: [email or web address] Modified Barium Swallow Study HIGH RIGGER Modified Barium Swallow Study Start: 02/17/22 12:45 Freq: Status: Active Protocol: Document 02/17/22 16:25 LNK (Rec: 02/17/22 17:23 LNK [id number]) Modified Barium Swallow Study Total Time Visit Start Time 14:00 Visit Stop Time 15:00 Total Visit Minutes [address] Wasserman Reason for Referral dysphagia Setting Setting Acute Care Patient Information Identification Type Name,Date of Patient History Pt is a 76-year-old female with chronic pain syndrome, diabetes type 2, essential hypertension, and hyperlipidemia presented to the ED with history of weakness in her right hand, noticing when she was eating and holding a spoon, was not able to continue holding it. Pt and Pt's daughter states that patient has been complaining of having a swallowing problem which appears to be chronic and was finding it hard to eat soft foods even. Pt described her swallow difficulty as it gets stuck and does not go into her esophagus. She also described as a spasm. Pt had ACDF surgery x 2 years ago. After that her swallow spasm began. She also described a bone spur in her neck. an MRI yesterday indicated: 1. Chronic osseous fusion across the C4-5 and C5-6 disc spaces. 2. Multilevel degenerative changes throughout the cervical sinus described in detail above. 3. Neural foraminal narrowing is high-grade on the right as C3-4 as well as bilaterally at C6-7 and C7-T1. 4. No high-grade spinal canal stenosis. Subjective Observations Pt was seated in the fluoroscopy chair with instructions provided. Pt understood and agreed to proceed. Patient Positioning Position View Lateral Imaging Lateral View Textures Administered Trials Presented Thin Liquid via Spoon,Thin Liquid via Cup,Pudding Thick Liquid via Spoon,Regular Textures,Barium Tablet Oral Phase Source: MBSIMP (TM) (C) Bolus Specific Scoring Grid Lip Closure No Impairment (WNL) Tongue Control During Bolus Hold No Impairment (WNL) Bolus Prep/Mastication No Impairment (WNL) Bolus Transport/Lingual Motion No Impairment (WNL) A/P Lingual Propulsion Delay No Oral Residue Minimal Impairment Residue Clearing WFL Nasal Regurgitation No Additional Oral Phase Observations OME and DKS were normal Pt's oral cavity and mastication were WNL. Missing molars on pt 's upper arch were noted that did not interfere with mastication Pharyngeal Phase Source: MBSIMP (TM) (C) Bolus Specific Scoring Grid Delayed Initiation of Pharyngeal Swallow No Soft Palate Elevation No Impairment (WNL) Tongue Base Strength/Range of Motion WFL Residue Along the Tongue Base Yes: trace to minimal Clearance of Residue Along Tongue Base No Impairment (WNL) Laryngeal Elevation No Impairment (WNL) Anterior Hyoid Movement No Impairment (WNL) Epiglottic Range of Motion WFL Vallecular Residue Yes Clearance of Vallecular Residue WFL Laryngeal Vestibular Closure WFL Pharyngeal Stripping Wave WFL Posterior Pharyngeal Wall Residue Yes Clearance of Posterior Pharyngeal Wall WFL Residue Upper Esophageal Sphincter Opening Moderate Impairment Residue in the Pyriform Sinuses No Esophageal Clearance Upright Position WFL Pharyngoesophageal Backflow Observed No Additional Pharyngeal Phase Observations Pt's pharyngeal phase of swallow was observed to be WNL/ WFL. Flash penetration on the laryngeal vestibule, however this can be expected to occur with age. Pt's UES was observed to have reduced extension resulting in the need to swallow several times. There was significant narrowing of the EUS with to clear contrast from the pharynx. This occured with the pudding thick trial and the cookie trial. Several swallows of water were needed to pass the residue effectively. The radiologist report stated possible upper esophageal sphincter hypertrophy. He recommended GI consult. A/P View Clinical Impressions Dysphagia Type esophageal Patient Appropriate for Therapy No Recommendations Diet Liquids Order Thin Diet Order Regular Medication Recommendation As Tolerated Treatment Plan Recommended Referrals GI Consult
--- NOTE | 2022-02-17 17:56 | PM.PN.1 ---
Subjective Subjective Date Patient Seen: 02/17/22 Time Patient Seen: 17:56 Interval history: 76-year-old female admitted to the hospital with right hand weakness, shoulder pain, neck pain, which has been progressively worse.? She reports her pain is 10/10, however this is chronic pain for her.? Patient had an MRI which did show foraminal stenosis / impingement on the right at C3-4 and bilaterally at C6-7. She was started on oral prednisone. She also complained of food getting stuck, seen by speech therapy whom did barium swallow which showed narrowing at the level of the proximal esophagus. Exam Vital Signs (past 8 hours): - 02/17/22 11:02 02/17/22 15:00 Temperature 98.1 F 98.5 F Pulse Rate 96 H 103 H Respiratory Rate 18 18 Blood Pressure 136/77 148/80 H Pulse Oximetry 98 95 Oxygen Delivery Method Room Air Oxygen Flow Rate 0 Narrative Exam Narrative: General:? Patient is well developed and well nourished, in no distress at this time. HEENT:? Normocephalic, atraumatic, extraocular muscles intact, oral pharynx is clear and mucous membranes are moist. Neck: supple and symmetric, trachea is midline, no cervical adenopathy. Negative for JVD Chest:? Normal AP diameter and contour without kyphoscoliosis, no tachypnea, equal chest rise bilaterally. Lungs:? CTA b/l no wheezing rhonchi or rales. Cardio:?RRR no m/r/g. Abdomen: S NT ND. No CVA tenderness. Musculoskeletal:? Muscle strength and tone are equal within normal limits, no deformity. Extremities: No edema or joint effusions. No cyanosis or clubbing. Skin:? Pale,? Warm to touch,dry and intact without rashes, ulcerations or petechiae.? Neuro:? Alert and orientated x3,? sensation to touch intact in all extremities, no gross deficits noted of cranial nerves. Strength is +5/5 but right is weaker than left. Psych:? Patient has a well-kept appearance, appropriate affect, mental status attitude thought context and judgment are appropriate for age. Objective Imaging modified barium swallow: Radiologist's impression: Possible upper esophageal sphincter hypertrophy. Labs Result Diagrams: 02/17/22 05:34 02/17/22 05:34 Labs: Laboratory Results - last 24 hr 02/16/22 02/17/22 02/17/22 22:00 05:34 05:34 WBC 10.5 RBC 4.08 Hgb 12.5 Hct 36.9 MCV 90.5 MCH 30.7 MCHC 33.9 RDW 13.3 Plt Count 333 Neut % (Auto) 71.8 Lymph % (Auto) 17.4 L [place] % (Auto) 7.2 Eos % (Auto) 2.9 Baso % (Auto) 0.7 Neut # (Auto) 7500 H Lymph # (Auto) 1800 [place] # (Auto) 800 Eos # (Auto) 300 Baso # (Auto) 100 Sodium 134 L Potassium 3.7 Chloride 100 Carbon Dioxide 24 BUN 21 H Creatinine 0.88 Estimated GFR > 60 BUN/Creatinine Ratio 23.9 H Glucose 147 H Calcium 9.0 Magnesium 1.9 PFSH Medical History Cervical osteoarthritis Chronic pain syndrome Diabetes type 2, controlled Essential hypertension Hyperlipidemia Family History (Updated 02/16/22 @ 00:47 by PAZ Duarte) Father Lymphoma Mother Heart disease Brother Alcohol abuse Sister Breast cancer Social History household members: none Smoking Status: Never smoker alcohol intake: never Assessment & Plan Assessment & Plan narrative: 1. Right hand weakness, cervical radiculopathy in the setting of right shoulder pain, right upper extremity pain, NIH score is 0, doubt CVA or TIA - MRI shows impingement at C3-4 and bilaterally at C6-7. Started on predniosone which should continue at 60 mg x 1 week then 1 week taper. Outpatient surgery consultation recommended. She has prior instrumentation. - continue PT/OT, currently recommended for SNF - continue pain control, pain is stated 08/07 but is chronically.continue home tylenol with codeine and muscle relaxant. 2. Hypertension - continue home medications 3. Hyperlipidemia - continue home medications 4. Chronic pain - continue medications as noted above. 5. DM - continue home metformin 6. cricopharyngeal hypertrophy - patient complained of food getting stuck in her throat. Currently no obstruction but MBS showed upper esophageal hypertrophy and narrowing. Behavioral modifications including dietary restrictions (soft diet if symptoms worsen) - recommend outpatient GI evaluation for further workup. Code: DNR Dispo: discharge to SNF Time Spent With Patient Critical Care time: I spent a total of [] minutes of critical care time on this patient's care today; this time is exclusive of procedural time. Quality VTE Deep Vein Thrombosis/Pulmonary Embolism Present on Admission: No
[2022-02-17] MEDS: MECLIZINE HCL 12.5 MG TABLET 25 MG PO (18:35)
[2022-02-17 20:00] VITALS: BP 134/75; PULSE 100; RESP 17; TEMP 36.7; O2SAT 95
[2022-02-17] MEDS: guaiFENesin ER 600 MG TAB PO (20:03)
[2022-02-18] VITALS (8 sets, daily range): BP systolic 111–139; BP diastolic 57–72; PULSE 74–101; RESP 16–23; TEMP 36.4–37.3; O2SAT 94–100
[2022-02-18] MEDS: CODEINE/ACETAMINOPHEN 30/300 TABLET 2 TAB PO ×4 (06:23→23:45)
[2022-02-18] MEDS: NABUMETONE 500 MG TABLET PO ×4 (06:24→23:08)
[2022-02-18] MEDS: PRAMIPEXOLE 0.25 MG TABLET 0.5 MG PO ×4 (06:24→23:09)
[2022-02-18] MEDS: CYCLOBENZAPRINE 10 MG TABLET 7.5 MG PO ×4 (06:24→23:08)
[2022-02-18] MEDS: ASPIRIN EC 81 MG TABLET PO (08:41)
[2022-02-18] MEDS: lisinopriL 20 MG TABLET PO (08:41)
[2022-02-18] MEDS: predniSONE 20 MG TABLET 60 MG PO (08:42)
[2022-02-18] MEDS: ENOXAPARIN 40 MG/0.4 ML SYRINGE SUBCUT (08:42)
[2022-02-18] MEDS: SODIUM CHLORIDE 0.9% FLUSH 10 ML IV ×2 (08:43→19:58)
[2022-02-18] MEDS: guaiFENesin ER 600 MG TAB PO ×2 (10:42→21:59)
[2022-02-18] MEDS: MECLIZINE HCL 12.5 MG TABLET 25 MG PO ×2 (10:42→21:59)
[2022-02-18 13:56] LABS: COVID19 -Nasal RAPID Negative (Negative)
--- NOTE | 2022-02-18 14:26 | PT.IPTN ---
Current Diagnoses Chronic pain syndrome (02/17/22) Other malaise (02/17/22) Physical Therapy Treatment Note M2 PT-IP Current Condition Start: 02/16/22 13:04 Freq: NEEDED Status: Active Protocol: Document 02/16/22 13:45 AB (Rec: 02/16/22 15:44 AB [id number]) Physical Therapy Current Condition Current Condition Evaluation Date 02/16/22 Treatment Diagnosis TIA; difficulty in walking Onset Date 02/15/22 M3 PT-IP Subjective Start: 02/16/22 13:04 Freq: NEEDED Status: Active Protocol: Document 02/18/22 14:03 KS (Rec: 02/18/22 14:36 KS [id number]) Subjective Physical Therapy Visit Type Type Treatment Note Visit Start Time 14:03 Visit Stop Time 14:26 Total Visit Minutes 23 Number of MANAGER PAYMENT Visits 2 Physical Therapy Visit Comments Patient Comments Pt agreeable to workig w/ PT. M4 PT-IP Mobility and Gait Start: 02/16/22 13:04 Freq: NEEDED Status: Active Protocol: Document 02/18/22 14:03 KS (Rec: 02/18/22 14:36 KS [id number]) PT-Transfer Assessment Sit to and From Stand Sit to and from Stand Minimal Assistance,1 Person Assistance,Use of Upper Extremities Equipment Transfer Assistive Device Gait Belt,Front Wheeled Walker Orthotic/Prosthetic Devices or Brace: No Transfers Transfer Destination Chair Transfer Technique ambulated Transfer Ability Level of Assist Minimal Assistance,1 Person Assistance,Use of Upper Extremities Comments Mobility Comments Pt in chair upon arrival and agreeable to ambulate. CGA for scooting to EOC and Min A for sit<>stand w/ FWW. Pt ambulated ~15 ft w/ FWW CGA and then returned to chair due to fatigue. After two minute seated rest break, pt ambulated additional 20 ft w/ FWW. She leans towards L and has flexed trunk as well as decreased stride and foot clearance. Occasional Min A for FWW management especially when turning to sit. After ambulation she completed 1x10 bilateral ankle pumps, quad sets, glute sets, and seated marching. Pt c/o fatigue following. Left in chair w/ alarm on and all needs in reach. Gait Assessment Gait Gait Assistance Required: Contact Guard Assist,Minimum Assistance,1 Person Assist Distance (Feet) 20 Able to Maintain Weight Bearing Status Yes During Gait Assistive Devices Assistive Device Gait Belt,Front Wheeled Walker Orthotic/Prosthetic Devices or Brace: No Gait Deviations General Gait Pattern Antalgic,Decreased Stride Length,Decreased Feet Clearance,Flexed Trunk,Lateral Trunk Lean,Step-to Gait,Wide Based Gait Factors Limiting Gait Function Factors Limiting Gait Function Decreased Activity Tolerance, Decreased Sensation,Decreased Strength,Limited Range of Motion,Pain Comments Gait Comments Please refer to mobility section for details. Stair Climbing Assessment Comments Stair Climbing Comments Not assessed. PT-Balance Assessment Sitting Balance and Reactions Static Sitting Balance Ability Good Dynamic Sitting Balance Ability Fair Standing Balance and Reactions Static Standing Balance Ability Fair Dynamic Standing Balance Ability Fair Device Used FWW M5 PT-IP Objective Assessments Start: 02/16/22 13:04 Freq: NEEDED Status: Active Protocol: Document 02/16/22 13:45 AB (Rec: 02/16/22 15:44 AB [id number]) Orientation Orientation/Cognition Level of Alertness Alert Orientation Name Language Function Ability Hard of Hearing Safety Awareness Decreased Safety Awareness Memory Description No Deficits Noted Gross Range of Motion Lower Extremity ROM Assessment Within Functional Limits Strength Lower Extremity Strength Assessment Bilaterally Impaired Hip 3+/5 Knee 3+/5 Coordination Assessment Gross Coordination Gross Coordination WNL Sensation Assessment Sensation Gross Sensation Right UE Impaired Sensation Description Numbness Comments Sensation Comments c/o R fingers numbness Muscle Tone Muscle Tone WNL Yes M6 PT-IP Treatment Start: 02/16/22 13:04 Freq: NEEDED Status: Active Protocol: Document 02/18/22 14:03 KS (Rec: 02/18/22 14:36 KS [id number]) Physical Therapy Treatment Exercises Exercises Ankle Pumps,Gluteal Sets,Quad Sets Education Education Provided Safety Other Treatments Other Treatment Performed Seated marches. Wrote exercises on whiteboard for pt to complete while in bed and chair throughout the day. M7 PT-IP Assessment and Plan Start: 02/16/22 13:04 Freq: NEEDED Status: Active Protocol: Document 02/18/22 14:03 KS (Rec: 02/18/22 14:36 KS [id number]) PT Summary Assessment and Plan Potential Rehabilitation Potential Good Status of Condition at Evaluation Evolving Summary Impairments Pain,ROM,Strength,Balance, Coordination,Sensation,Tone, Cognition,Bed Mobility, Transfers,Gait,Activity Tolerance Assessment Summary Pt showed improvement w/ mobility today and was able to ambulate short distances. Min A for sit<>stand and CGA to Min A for FWW management for ambulation. Able to tolerate up to 20 ft of ambulation w/ FWW at this time before becoming fatigued and needing seated rest break. Low tolerance for LE strengthening exercises also, but able to complete 10 reps of each. L lateral lean and flexed trunk when ambulating requiring cues for upright posture and FWW management. High fall risk due to low tolerance for activity , poor safety awareness/use of FWW and decreased foot clearance. At this time, pt will require SNF to improve functional mobility independence and activity tolerance as she does not have appropriate level of assistance at home. Goals Bed Mobility Goal Standby Assistance Transfer Goal Standby Assistance,Front Wheeled Walker Gait Goal Standby Assistance,Front Wheel Walker Gait Distance 100 Other Goals improve ambulation using 4WW 150 ft SBA Days to Meet Goals 10 Frequency of Treatment Frequency Of Treatment Once a Day Treatment Plan Physical Therapy Treatment Plan Bed Mobility Training,Transfer Training,Gait Training, Therapeutic Exercise,Balance Retraining,Discharge Planning, Hot or Cold Pack,Neuromuscular Re-ed,Coordination Retraining ,Manual Therapy Precautions Other Precautions falls Recommendations To Nursing Amount of Assist Needed 1 Person Assist Discharge Recommendations PT Discharge Recommendations SNF Rehab Transportation Needs at Discharge Wheelchair/Cabulance
--- NOTE | 2022-02-18 19:17 | P.PN_ITS ---
Subjective Subjective Date Patient Seen: 02/18/22 Interval history: 76-year-old female admitted to the hospital with right hand weakness, shoulder pain, neck pain, which has been progressively worse.? She reports her pain is 10/10, however this is chronic pain for her.? Patient had an MRI which did show foraminal stenosis / impingement on the right at C3-4 and bilaterally at C6-7. She was started on oral prednisone. She also complained of food getting stuck, seen by speech therapy whom did barium swallow which showed narrowing at the level of the proximal esophagus. No acute events overnight. She has slightly worsened use of her R hand today, but minimally and still improved from admission. She is not sure about surgery should it be recommended. Exam Vital Signs (past 8 hours): - 02/18/22 11:50 02/18/22 16:45 Temperature 98.7 F 98.4 F Pulse Rate 97 H 101 H Respiratory Rate 18 16 Blood Pressure 139/72 131/66 Pulse Oximetry 94 95 Oxygen Delivery Method Room Air Oxygen Flow Rate 0 Narrative Exam Narrative: General:? Patient is well developed and well nourished, in no distress at this time. HEENT:? Normocephalic, atraumatic, extraocular muscles intact, oral pharynx is clear and mucous membranes are moist. Neck: supple and symmetric, trachea is midline, no cervical adenopathy. Negative for JVD Chest:? Normal AP diameter and contour without kyphoscoliosis, no tachypnea, equal chest rise bilaterally. Lungs:? CTA b/l no wheezing rhonchi or rales. Cardio:?RRR no m/r/g. Abdomen: S NT ND. No CVA tenderness. Musculoskeletal:? Muscle strength and tone are equal within normal limits, no deformity. Extremities: No edema or joint effusions. No cyanosis or clubbing. Skin:? Pale,? Warm to touch,dry and intact without rashes, ulcerations or petechiae.? Neuro:? Alert and orientated x3, sensation stated as diminished in R hand, no gross deficits noted of cranial nerves. Strength is +5/5 but right is weaker than left. Psych:? Patient has a well-kept appearance, appropriate affect, mental status attitude thought context and judgment are appropriate for age. Objective Labs Result Diagrams: 02/17/22 05:34 02/17/22 05:34 Labs: Laboratory Results - last 24 hr 02/18/22 13:15 SARS-CoV-2 (PCR) Negative PFSH Medical History Cervical osteoarthritis Chronic pain syndrome Diabetes type 2, controlled Essential hypertension Hyperlipidemia Family History (Updated 02/16/22 @ 00:47 by PAZ Duarte) Father Lymphoma Mother Heart disease Brother Alcohol abuse Sister Breast cancer Social History household members: none Smoking Status: Never smoker alcohol intake: never Assessment & Plan Assessment & Plan narrative: 1. Right hand weakness, cervical radiculopathy in the setting of right shoulder pain, right upper extremity pain, NIH score is 0, doubt CVA or TIA ?- MRI shows impingement at C3-4 and bilaterally at C6-7. Started on predniosone which should continue at 60 mg x 1 week then 1 week taper. Outpatient surgery consultation recommended. She has prior instrumentation. ?- continue PT/OT, currently recommended for SNF ?- continue pain control, pain is stated 08/07 but is chronically.continue home tylenol with codeine and muscle relaxant. 2. Hypertension ?- continue home medications 3. Hyperlipidemia ?- continue home medications 4. Chronic pain ?- continue medications as noted above. 5. DM ?- continue home metformin 6. cricopharyngeal hypertrophy ?- patient complained of food getting stuck in her throat. Currently no obstruction but MBS showed upper esophageal hypertrophy and narrowing. Behavioral modifications including dietary restrictions (soft diet if symptoms worsen) ?- recommend outpatient GI evaluation for further workup. Code: DNR Dispo: discharge to SNF Time Spent With Patient Critical Care time: I spent a total of [] minutes of critical care time on this patient's care t olga; this time is exclusive of procedural time. Quality VTE Deep Vein Thrombosis/Pulmonary Embolism Present on Admission: No
[2022-02-19] VITALS (7 sets, daily range): BP systolic 126–176; BP diastolic 68–96; PULSE 86–106; RESP 16–22; TEMP 36.3–37.3; O2SAT 95–100
[2022-02-19] MEDS: hydroCHLOROthiazide 25 MG TABLET PO (00:31)
[2022-02-19] MEDS: CODEINE/ACETAMINOPHEN 30/300 TABLET 2 TAB PO ×3 (00:34→19:47)
[2022-02-19] MEDS: NABUMETONE 500 MG TABLET PO ×3 (00:35→19:48)
[2022-02-19] MEDS: PRAMIPEXOLE 0.25 MG TABLET 0.5 MG PO ×3 (00:35→19:48)
[2022-02-19] MEDS: CYCLOBENZAPRINE 10 MG TABLET 7.5 MG PO ×3 (05:29→19:48)
[2022-02-19] MEDS: predniSONE 20 MG TABLET 60 MG PO (08:17)
[2022-02-19] MEDS: lisinopriL 20 MG TABLET PO (08:17)
[2022-02-19] MEDS: SODIUM CHLORIDE 0.9% FLUSH 10 ML IV ×2 (08:17→21:20)
[2022-02-19] MEDS: ENOXAPARIN 40 MG/0.4 ML SYRINGE SUBCUT (08:17)
[2022-02-19] MEDS: ASPIRIN EC 81 MG TABLET PO (08:17)
--- NOTE | 2022-02-19 14:29 | PM.PN.1 ---
Subjective Subjective Date Patient Seen: 02/19/22 Interval history: 76-year-old female admitted to the hospital with right hand weakness, shoulder pain, neck pain, which has been progressively worse.? She reports her pain is 10/10, however this is chronic pain for her.? Patient had an MRI which did show foraminal stenosis / impingement on the right at C3-4 and bilaterally at C6-7. She was started on oral prednisone. She also complained of food getting stuck, seen by speech therapy whom did barium swallow which showed narrowing at the level of the proximal esophagus. No acute events overnight. She reports no changes today. Daughter assisting in possible transfer to SNF in [facility] tomorrow. Exam Vital Signs (past 8 hours): - 02/19/22 08:00 02/19/22 08:20 02/19/22 12:00 Temperature 99.2 F 97.4 F L Pulse Rate 98 H 106 H Respiratory Rate 16 16 Blood Pressure 176/93 H 147/71 H Pulse Oximetry 100 96 95 Oxygen Delivery Method Room Air Oxygen Flow Rate 0 Narrative Exam Narrative: General:? Patient is well developed and well nourished, in no distress at this time. HEENT:? Normocephalic, atraumatic, extraocular muscles intact, oral pharynx is clear and mucous membranes are moist. Neck: supple and symmetric, trachea is midline, no cervical adenopathy. Negative for JVD Chest:? Normal AP diameter and contour without kyphoscoliosis, no tachypnea, equal chest rise bilaterally. Lungs:? CTA b/l no wheezing rhonchi or rales. Cardio:?RRR no m/r/g. Abdomen: S NT ND. No CVA tenderness. Musculoskeletal:? Muscle strength and tone are equal within normal limits, no deformity. Extremities: No edema or joint effusions. No cyanosis or clubbing. Skin:? Pale,? Warm to touch,dry and intact without rashes, ulcerations or petechiae.? Neuro:? Alert and orientated x3, sensation stated as diminished in R hand, no gross deficits noted of cranial nerves. Strength is +5/5 but right is weaker than left. Psych:? Patient has a well-kept appearance, appropriate affect, mental status attitude thought context and judgment are appropriate for age. Objective Labs Result Diagrams: 02/17/22 05:34 02/17/22 05:34 [facility] Medical History Cervical osteoarthritis Chronic pain syndrome Diabetes type 2, controlled Essential hypertension Hyperlipidemia Family History (Updated 02/16/22 @ 00:47 by PAZ Duarte) Father Lymphoma Mother Heart disease Brother Alcohol abuse Sister Breast cancer Social History household members: none Smoking Status: Never smoker alcohol intake: never Assessment & Plan Assessment & Plan narrative: 1. Right hand weakness, cervical radiculopathy in the setting of right shoulder pain, right upper extremity pain, NIH score is 0, doubt CVA or TIA ?- MRI shows impingement at C3-4 and bilaterally at C6-7. Started on predniosone which should continue at 60 mg x 1 week then 1 week taper. Outpatient surgery consultation recommended. She has prior instrumentation. ?- continue PT/OT, currently recommended for SNF ?- continue pain control, pain is stated 08/07 but is chronically.continue home tylenol with codeine and muscle relaxant. 2. Hypertension ?- continue home medications 3. Hyperlipidemia ?- continue home medications 4. Chronic pain ?- continue medications as noted above. 5. DM ?- continue home metformin 6. cricopharyngeal hypertrophy ?- patient complained of food getting stuck in her throat. Currently no obstruction but MBS showed upper esophageal hypertrophy and narrowing. Behavioral modifications including dietary restrictions (soft diet if symptoms worsen) ?- recommend outpatient GI evaluation for further workup. Code: DNR Dispo: discharge to SNF Time Spent With Patient Critical Care time: I spent a total of [] minutes of critical care time on this patient's care today; this time is exclusive of procedural time. Quality VTE Deep Vein Thrombosis/Pulmonary Embolism Present on Admission: No
--- NOTE | 2022-02-19 14:42 | CM.DPC ---
DCP/conitnued: Reviewed chart. Per provider patient is medically stable to d/c to SNFtoday. Received call from [facility] this AM indicating that they are having staffing isseus and cannot accept today. SURFACER OPERATOR met with daughter late morning whom was upset that she did not know patient discharge was cancelled. Daughter also mentions that her preference would be for patient to go to SNF in [place]. Daughter plans to do some checking on her own. In the meantime plan is for patient to d/c to [facility] tomorrow at approximately 10:00am. Left message [facility] per daughter's request. P: Anticipate d/c to [facility] tomorrow unless daughter's changes her mind and facility can be found in [facility]. NICKIE Fisher
--- NOTE | 2022-02-19 14:53 | PT.IPTN ---
Current Diagnoses Weakness (02/17/22) Other malaise (02/17/22) Physical Therapy Treatment Note M2 PT-IP Current Condition Start: 02/16/22 13:04 Freq: NEEDED Status: Active Protocol: Document 02/16/22 13:45 AB (Rec: 02/16/22 15:44 AB [id number]) Physical Therapy Current Condition Current Condition Evaluation Date 02/16/22 Treatment Diagnosis TIA; difficulty in walking Onset Date 02/15/22 M3 PT-IP Subjective Start: 02/16/22 13:04 Freq: NEEDED Status: Active Protocol: Document 02/19/22 14:53 AW (Rec: 02/19/22 15:30 AW [id number]) Subjective Physical Therapy Visit Type Type Treatment Note Visit Start Time 14:36 Visit Stop Time 14:53 Total Visit Minutes 17 Physical Therapy Visit Comments Patient Comments Pt is willing to participate with PT Therapy Pain Assessment Pain When Pain Assessed At Rest Pain Present Pain Present Allowed to Sleep Location Right Arm Scale Used not quantified, mostly at elbow M4 PT-IP Mobility and Gait Start: 02/16/22 13:04 Freq: NEEDED Status: Active Protocol: Document 02/19/22 14:53 AW (Rec: 02/19/22 15:30 AW [id number]) PT-Transfer Assessment Sit to and From Stand Sit to and from Stand Minimal Assistance,1 Person Assistance,Use of Upper Extremities Equipment Transfer Assistive Device Gait Belt,Front Wheeled Walker Orthotic/Prosthetic Devices or Brace: No Transfers Transfer Destination Toilet,Bedside Commode Transfer Technique ambulated with FWW Transfer Ability Level of Assist Minimal Assistance,Moderate Assistance,1 Person Assistance ,Use of Upper Extremities Comments Mobility Comments Pt was sitting up in the chair as PT arrived. She vaguely described right arm pain that she said was limiting her mobility. She was agreeable to passive ROM and tolerated it well without complaint. She agreed to stand and was able to lift her right arm to the walker without complaint. She ambulated 15 feet to the toilet and required max cues + min assist to transfer. She comleted pericare SBA and then stood min A, transferring to [facility] set up in the shower mod A and cues for walker management and use of grab bars. BAND AID MACHINE OPERATOR arrived to assist pt with shower. Pt was left with BAND AID MACHINE OPERATOR. Gait Assessment Gait Gait Assistance Required: Contact Guard Assist,Minimum Assistance,1 Person Assist Distance (Feet) 15 Assistive Devices Assistive Device Gait Belt,Front Wheeled Walker Orthotic/Prosthetic Devices or Brace: No Gait Deviations General Gait Pattern Antalgic,Decreased Stride Length,Decreased Feet Clearance,Flexed Trunk,Lateral Trunk Lean,Step-to Gait,Wide Based Gait Factors Limiting Gait Function Factors Limiting Gait Function Decreased Activity Tolerance, Decreased Sensation,Decreased Strength,Limited Range of Motion,Pain Comments Gait Comments Pt leans left and forward in gait. She verbalized understanding but seems unable to correct her lean. Max cues and assist to manage walker in small spaces. Stair Climbing Assessment Comments Stair Climbing Comments Not assessed. PT-Balance Assessment Sitting Balance and Reactions Static Sitting Balance Ability Good Dynamic Sitting Balance Ability Fair Standing Balance and Reactions Static Standing Balance Ability Fair Dynamic Standing Balance Ability Fair Device Used FWW M5 PT-IP Objective Assessments Start: 02/16/22 13:04 Freq: NEEDED Status: Active Protocol: Document 02/16/22 13:45 AB (Rec: 02/16/22 15:44 AB [id number]) Orientation Orientation/Cognition Level of Alertness Alert Orientation Name Language Function Ability Hard of Hearing Safety Awareness Decreased Safety Awareness Memory Description No Deficits Noted Gross Range of Motion Lower Extremity ROM Assessment Within Functional Limits Strength Lower Extremity Strength Assessment Bilaterally Impaired Hip 3+/5 Knee 3+/5 Coordination Assessment Gross Coordination Gross Coordination WNL Sensation Assessment Sensation Gross Sensation Right UE Impaired Sensation Description Numbness Comments Sensation Comments c/o R fingers numbness Muscle Tone Muscle Tone WNL Yes M6 PT-IP Treatment Start: 02/16/22 13:04 Freq: NEEDED Status: Active Protocol: Document 02/19/22 14:53 AW (Rec: 02/19/22 15:30 AW [id number]) Physical Therapy Treatment Exercises Exercises Ankle Pumps,Gluteal Sets,Quad Sets Education Education Provided Safety Other Treatments Other Treatment Performed Pt states she has been doing exercises on white board. She completed a set while waiting for BAND AID MACHINE OPERATOR to arrive for shower. M7 PT-IP Assessment and Plan Start: 02/16/22 13:04 Freq: NEEDED Status: Active Protocol: Document 02/19/22 14:53 AW (Rec: 02/19/22 15:30 AW [id number]) PT Summary Assessment and Plan Potential Rehabilitation Potential Good Status of Condition at Evaluation Evolving Summary Impairments Pain,ROM,Strength,Balance, Coordination,Sensation,Tone, Cognition,Bed Mobility, Transfers,Gait,Activity Tolerance Progress Towards Goals Slow Progress due to Pain,Slow Progress - Other Assessment Summary Pt not tolerating much activity but is amenable to doing seated or supine exercises. She complains of RUE but is functionally able to place her right hand on the walker and use grab bars with her right hand. Due to impulsivity, poor activity tolerance, and decreased strength, pt will require SNF rehab. Goals Bed Mobility Goal Standby Assistance Transfer Goal Standby Assistance,Front Wheeled Walker Gait Goal Standby Assistance,Front Wheel Walker Gait Distance 100 Other Goals improve ambulation using 4WW 150 ft SBA Days to Meet Goals 10 Frequency of Treatment Frequency Of Treatment Once a Day Treatment Plan Physical Therapy Treatment Plan Bed Mobility Training,Transfer Training,Gait Training, Therapeutic Exercise,Balance Retraining,Discharge Planning, Hot or Cold Pack,Neuromuscular Re-ed,Coordination Retraining ,Manual Therapy Precautions Other Precautions falls Recommendations To Nursing Amount of Assist Needed Standby Assistance Discharge Recommendations PT Discharge Recommendations SNF Rehab Transportation Needs at Discharge Wheelchair/Cabulance
--- NOTE | 2022-02-19 16:47 | CM.DANOTE ---
DCP/continued: Received notification from daughter that she would like patient to go to [facility]. FEED INSPECTION SUPERVISOR placed call and spoke with Gunnar. He reports that they can accept tomorrow. Only thing still needed is orders, COVID test, scripts, and d/c summary. Daughter in agreement to pay for transport via cabulance. FEED INSPECTION SUPERVISOR spoke sri Alamo at [facility] today and they can pick patient up tomorrow at 11:00AM. FEED INSPECTION SUPERVISOR notified March at [facility] that bed no longer needed. P: SNF in [place] in , [facility] contact is Gunnar # [phone] fax# [phone]. NICKIE Fisher
[2022-02-20] VITALS: BP 139/72; PULSE 83; RESP 16; TEMP 36.8; O2SAT 97
[2022-02-20] MEDS: CODEINE/ACETAMINOPHEN 30/300 TABLET 2 TAB PO ×3 (00:52→11:07)
[2022-02-20] MEDS: PRAMIPEXOLE 0.25 MG TABLET 0.5 MG PO ×3 (00:54→11:06)
[2022-02-20] MEDS: CYCLOBENZAPRINE 10 MG TABLET 7.5 MG PO ×3 (00:54→11:06)
[2022-02-20] MEDS: NABUMETONE 500 MG TABLET PO ×3 (00:54→11:06)
[2022-02-20 04:00] VITALS: BP 154/80; PULSE 94; RESP 18; TEMP 36.4; O2SAT 98
[2022-02-20 08:00] VITALS: PULSE 83; RESP 17; TEMP 36.2; O2SAT 100
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
[2022-02-20 09:08] VITALS: BP 145/75; PULSE 84
[2022-02-20] MEDS: ASPIRIN EC 81 MG TABLET PO (09:08)
[2022-02-20] MEDS: lisinopriL 20 MG TABLET PO (09:08)
[2022-02-20] MEDS: ENOXAPARIN 40 MG/0.4 ML SYRINGE SUBCUT (09:11)
[2022-02-20] MEDS: predniSONE 20 MG TABLET 60 MG PO (09:13)
[2022-02-20] MEDS: SODIUM CHLORIDE 0.9% FLUSH 10 ML IV (09:13)
[2022-02-20] MEDS: hydroCHLOROthiazide 25 MG TABLET PO (09:13)
--- NOTE | 2022-02-20 10:35 | PT-IP ANOTE ---
Pt and daughter declined working with therapy when arrived, preparing to leave, have a big trip ahead and want to conserve energy. Daughter stated will be working with therapy when get to rehab. REGULATORY SUBMISSIONS ASSOCIATE inquired if any further questions or needs can help assist with, both pt and daughter declined. REGULATORY SUBMISSIONS ASSOCIATE was not seen, defer further assessment to SNF.
[2022-02-20] MEDS: guaiFENesin ER 600 MG TAB PO (11:06)
[2022-02-20] MEDS: MECLIZINE HCL 12.5 MG TABLET 25 MG PO (11:06)
--- NOTE | 2022-02-20 11:57 | PC.NURSE ---
Pt is A&Ox3 this a.m. VSS, afebrile on RA. She reports that her pain level is tolerable this a.m. She calls appropriately for assistance. She does report alerted sensation to R UE and difficulty with opening things and skills requiring fine motor movement. She is medically cleared for discharge today to [facility]. Daughter at bedside is helpful and supportive. Both daughter and patient verbalize understanding and agreement with discharge plan, follow up and instructions. Discharge packet given to facility designee and pt is escorted via w/chair with all of her belongings to the facility at 1135. This residential mortgage underwriter called report to receiving nurse at [phone].
--- NOTE | 2022-02-20 15:52 | CM.DPC ---
DCP/continued: Reviewed chart. Patient medically cleared to d/c. SUSTAINMENT LOGISTICS ANALYST placed call to Gunnar at [facility], he reports that they are ready to accept. Orders, PASRR, scripts, and d/c summary all faxed. Patient scheduled to be picked up around 11:30AM by [place] paid for by family. RN given number to call report. No additional needs identified. P: [facility] today. FRANK
== END 2022-02-20 11:40 | DRG 74 ==
LOC: ED 20:29 → AC 21:08
PROVIDERS: Emergency Medicine; Admitting Provider Nurse Practitioner Family; Emergency Provider Emergency Medicine; Referring Provider Nurse Practitioner Family; Visit Provider Nurse Practitioner Family
DX: M54.12 Radiculopathy, cervical region (principal); R13.10 Dysphagia, unspecified; J39.2 Other diseases of pharynx; I10 Essential (primary) hypertension; E78.5 Hyperlipidemia, unspecified; R82.71 Bacteriuria; E11.9 Type 2 diabetes mellitus without complications; G89.4 Chronic pain syndrome; R00.0 Tachycardia, unspecified; Z66 Do not resuscitate; Z98.1 Arthrodesis status; Z20.822 Contact with and (suspected) exposure to COVID-19; Z79.84 Long term (current) use of oral hypoglycemic drugs
CPT/HCPCS: 36415; 70450; 72141; 74230; 80048; 80053; 80061; 81003; 81015; 82962; 83036; 83735; 85025; 87077; 87086; 87186; 87635; 92610; 92611; 93005; 93306; 97110; 97162; 97530; 99284; C9803; G0378; J1650